=== PATIENT | male | born 1950 | race Caucasian/White ===

== ENCOUNTER 2018-03-07 18:16 | Emergency (ER) | payer OTHER ==
[~2018-03-07] VITALS: Ht 162.6 cm; Wt 66.0 kg
[~2018-03-07 18:16] MED LIST: ALFU1TAB10 PO; COUMPOW XX; DIGO0.12 PO; DILT180C56 OR; GEMF600T PO; LEVEMIR SQ; METO25 PO; PRAV40TA PO; SOTA80TA PO; SPIRPOW XX
[2018-03-07 18:17] VITALS: BP 126/70; PULSE 74; RESP 20; TEMP 98.4; O2SAT 97
[2018-03-07] MEDS ORDERED: ALFU10TA2 PO (18:37)
[2018-03-07] MEDS ORDERED: PRAD150C PO (18:37)
[2018-03-07] MEDS ORDERED: DILT120T PO (18:37)
[2018-03-07] MEDS ORDERED: SOTA80TA PO (18:37)
[2018-03-07] MEDS ORDERED: GEMF600T PO (18:37)
[2018-03-07] MEDS ORDERED: LEVEMIR SQ (18:37)
[2018-03-07] MEDS ORDERED: SPIR25TA PO (18:37)
[2018-03-07] MEDS ORDERED: PRAV40TA2 PO (18:37)
--- NOTE | 2018-03-07 18:56 | PD ---
HPI Chief Complaint: Injury Time Seen by Provider: 18:49 Travel History International Travel<30 days: No Contact w/Intl Traveler<30days: No Traveled to known affect area: No History of Present Illness HPI Patient presents with acute injury to his right great thumb. Using a table saw which removed the distal aspect of his thumb. Occurred 20 minutes prior to arrival. Tetanus up-to-date, reports tetanus 1 year ago. Pain is dull and achy 5 out of 10. Patient is a smoker. Past medical history for diabetes and atrial fibrillation. Anticoagulated with Pradaxa. Denies any aggravating or alleviating factors. Denies any new chest pain shortness of breath urinary or bowel symptoms. Denies any nausea vomiting diarrhea or fever. Last meal 1:30 PM. PFSH Past Medical History Hx Anticoagulant Therapy: Yes (Pradaxa ) Blood Disorders: No Anxiety: No Heart Rhythm Problems: Yes (A FIB WITH RVR) Cancer: No Cardiovascular Problems: Yes (AF) High Cholesterol: Yes Chemotherapy: No Congestive Heart Failure: Yes Diabetes: Yes (Type 2) Patient Takes Glucophage: No Diminished Hearing: No Endocrine: No GERD: Yes Genitourinary: Yes (PT HAS BNP) Immune Disorder: No Musculoskeletal: No Neurologic: No Psychiatric: No Respiratory: No Radiation Therapy: No Tetanus Vaccination: < 5 Years Influenza Vaccination: No ?: Not Past Surgical History Abdominal Surgery: No AICD: Yes ([employer] NOV 12, 2005 MODEL # 7278 SERIAL # [id number]) Cardiac Surgery: Yes Ear Surgery: No Endocrine Surgery: No Eye Surgery: No Genitourinary Surgery: No Gynecologic Surgery: No Joint Replacement: No Oral Surgery: No Pacemaker: No Thoracic Surgery: No Other Surgery: Yes Social History Alcohol Use: No Tobacco Use: Yes (1 pk per day) Substance Use: No Allergies-Medications (Allergen,Severity, Reaction): Coded Allergies: No Known Allergies (Verified Allergy, Unknown, 03/07/18) Reported Meds & Prescriptions Reported Meds & Active Scripts Active Bactrim DS (Sulfamethoxazole-Trimethoprim) 800-160 Mg Tab 1 Tab PO BID Doxycycline Hyclate 100 Mg Cap 100 Mg PO BID Reported Pravastatin 40 Mg Tab 40 Mg PO DAILY Levemir Inj (Insulin Detemir) 1,000 unit/ 10 ML Vial 58 Units SQ HS Do not mix with any other Insulin. Spironolactone 25 Mg Tab 12.5 Mg PO DAILY Sotalol (Sotalol HCl) 80 Mg Tab 80 Mg PO BID Gemfibrozil 600 Mg Tab 600 Mg PO BIDAC Take 30 minutes prior to breakfast and dinner. Diltiazem (Diltiazem HCl) 120 Mg Tab 180 Mg PO DAILY Pradaxa (Dabigatran) 150 Mg Cap 150 Mg PO BID Alfuzosin ER 24 HR 10 Mg Tab 10 Mg PO DAILY Review of Systems General / Constitutional: No: Fever Eyes: No: Visual changes HENT: No: Headaches Cardiovascular: No: Chest Pain or Discomfort Respiratory: No: Shortness of Breath Gastrointestinal: No: Abdominal Pain Genitourinary: No: Dysuria Musculoskeletal: No: Pain Skin: Positive Other (Amputation), No Rash Neurologic: No: Weakness Psychiatric: No: Depression Endocrine: No: Polydipsia Hematologic/Lymphatic: No: Easy Bruising Physical Exam Narrative GENERAL: Well-nourished, well-developed patient. SKIN: Focused skin assessment warm/dry. HEAD: Normocephalic. EYES: No scleral icterus. No injection or drainage. NECK: Supple, trachea midline. No JVD or lymphadenopathy. CARDIOVASCULAR: Regular rate and rhythm without murmurs, gallops, or rubs. RESPIRATORY: Breath sounds equal bilaterally. No accessory muscle use. GASTROINTESTINAL: Abdomen soft, normal bowel sounds, non-tender, nondistended. MUSCULOSKELETAL: No cyanosis, or edema. BACK: Nontender without obvious deformity. No CVA tenderness. Examination of the right thumb reveals amputation of the distal aspect approximately 0.5 cm, bleeding is controlled Data Data Last Documented VS Vital Signs Date Time Temp Pulse Resp B/P (MAP) Pulse Ox O2 Delivery O2 Flow Rate FiO2 03/07/18 18:30 18 95 Room Air 03/07/18 18:17 98.4 74 126/70 (88) Orders Orders Prothrombin Time / Inr (Pt) (03/07/18 18:49) Complete Blood Count With Diff (03/07/18 18:49) Comprehensive Metabolic Panel (03/07/18 18:49) Electrocardiogram (03/07/18 ) Chest, Single Ap (03/07/18 ) Finger ([id number]) (03/07/18 ) Sodium Chlor 0.9% 250 Ml Inj (Ns 250 Ml (03/07/18 19:00) Morphine Inj (Morphine Inj) (03/07/18 19:00) NPO (03/07/18 18:49) Bupivacaine Pf 0.5% Inj (Marcaine Pf 0.5 (03/07/18 20:00) Povidone Iodine 10% Oint (Betadine 10% O (03/07/18 21:15) Cefazolin Inj (Ancef Inj) (03/07/18 21:30) Labs Laboratory Tests Test 03/07/18 19:00 White Blood Count 7.3 TH/MM3 Red Blood Count 4.35 MIL/MM3 Hemoglobin 12.8 GM/DL Hematocrit 39.0 % Mean Corpuscular Volume 89.8 FL Mean Corpuscular Hemoglobin 29.3 PG Mean Corpuscular Hemoglobin Concent 32.7 % Red Cell Distribution Width 12.0 % Platelet Count 214 TH/MM3 Mean Platelet Volume 8.6 FL Neutrophils (%) (Auto) 62.6 % Lymphocytes (%) (Auto) 25.3 % Monocytes (%) (Auto) 8.0 % Eosinophils (%) (Auto) 3.4 % Basophils (%) (Auto) 0.7 % Neutrophils # (Auto) 4.6 TH/MM3 Lymphocytes # (Auto) 1.8 TH/MM3 Monocytes # (Auto) 0.6 TH/MM3 Eosinophils # (Auto) 0.2 TH/MM3 Basophils # (Auto) 0.1 TH/MM3 CBC Comment DIFF FINAL Differential Comment Prothrombin Time 12.0 SEC Prothromb Time International Ratio 1.2 RATIO Blood Urea Nitrogen 28 MG/DL Creatinine 1.30 MG/DL Random Glucose 128 MG/DL Total Protein 7.8 GM/DL Albumin 3.6 GM/DL Calcium Level 9.1 MG/DL Alkaline Phosphatase 104 U/L Aspartate Amino Transf (AST/SGOT) 9 U/L Alanine Aminotransferase (ALT/SGPT) 16 U/L Total Bilirubin 0.3 MG/DL Sodium Level 137 MEQ/L Potassium Level 4.4 MEQ/L Chloride Level 103 MEQ/L Carbon Dioxide Level 25.8 MEQ/L Anion Gap 8 MEQ/L Estimat Glomerular Filtration Rate 55 ML/MIN MDM Medical Decision Making Medical Screen Exam Complete: Yes Emergency Medical Condition: Yes Differential Diagnosis Amputation, open fracture, laceration Narrative Course Assessment plan discussed with patient and at bedside. EKG is paced with rate of 64. Last 72 hours Impressions Finger X-Ray 03/07/18 0000 Signed Impressions: CONCLUSION: Amputation of the terminal tuft distal phalanx right thumb. Chest X-Ray 03/07/18 0000 Signed Impressions: CONCLUSION: Pacer leads overlying right atrium and right ventricle. No active disease. Procedures Procedure Narrative See Dr. Beyer's note for surgical repair Physician Communication Physician Communication Spoke with Dr. Beyer who is in agreement surgical repair at bedside here in the ER Diagnosis Primary Impression: Amputation thumb Patient Instructions: General Instructions Additional Instructions: Motrin for pain, encouraged general wound care, follow-up with Dr. Beyer/hand surgery. Return to emerge from with any onset of new symptoms. Med/Other Pt SpecificInfo: Prescription(s) given Scripts Sulfamethoxazole-Trimethoprim (Bactrim DS) 800-160 Mg Tab 1 TAB PO BID for Infection, #20 TAB 0 Refills Prov: Mihai Hatfield MD 03/07/18 Doxycycline Hyclate (Doxycycline Hyclate) 100 Mg Cap 100 MG PO BID for Infection, #20 CAP 0 Refills Prov: Mihai Hatfield MD 03/07/18 Disposition: 01 DISCHARGE HOME Condition: Good Mihai Hatfield MD Mar 07, 2018 18:56
[2018-03-07] MEDS ORDERED: SODIUM CHLOR 0.9% 250 ML INJ 250 ML IV ONE (19:00)
[2018-03-07] MEDS ORDERED: MORPHINE SULFATE 2 MG/ML SYRINGE IV PUSH ONE (19:00)
[2018-03-07 19:23] LABS: AUTOMATED NEUTROPHIL # 4.6 TH/MM3 (1.8-7.7); BASOPHIL # 0.1 TH/MM3 (0-0.2); BASOPHIL % 0.7 % (0.0-2.0); EOSINOPHIL # 0.2 TH/MM3 (0-0.4); EOSINOPHIL % 3.4 % (0.0-4.0); HEMOGLOBIN 12.8 GM/DL (13.0-17.0); LYMPH % 25.3 % (9.0-44.0); LYMPHOCYTE # 1.8 TH/MM3 (1.0-4.8); MEAN CELL VOLUME 89.8 FL (80.0-100.0); MEAN CORPUSCULAR HEMOGLOBIN 29.3 PG (27.0-34.0); MEAN CORPUSCULAR HGB CONC 32.7 % (32.0-36.0); MEAN PLATELET VOLUME 8.6 FL (7.0-11.0); MONOCYTE # 0.6 TH/MM3 (0-0.9); NEUT % 62.6 % (16.0-70.0); PLATELET COUNT 214 TH/MM3 (150-450); RED BLOOD COUNT 4.35 MIL/MM3 (4.50-5.90); WHITE BLOOD COUNT 7.3 TH/MM3 (4.0-11.0)
[2018-03-07 19:32] LABS: CHLORIDE 103 MEQ/L (98-107); SODIUM (NA) 137 MEQ/L (136-145)
[2018-03-07 19:35] LABS: CALCIUM 9.1 MG/DL (8.5-10.1)
[2018-03-07 19:36] LABS: ALBUMIN 3.6 GM/DL (3.4-5.0); BICARBONATE 25.8 MEQ/L (21.0-32.0); BLOOD UREA NITROGEN 28 MG/DL (7-18); GLUCOSE,RANDOM 128 MG/DL (74-106)
[2018-03-07 19:39] LABS: ALT (GPT) 16 U/L (12-78); AST (GOT) 9 U/L (15-37); GLOMERULAR FILTRATION RATE 55 ML/MIN (>89)
[2018-03-07 19:40] LABS: TOTAL BILIRUBIN ADULT 0.3 MG/DL (0.2-1.0)
[2018-03-07 19:41] LABS: TOTAL PROTEIN 7.8 GM/DL (6.4-8.2)
[2018-03-07 19:42] LABS: ALKALINE PHOSPHATASE 104 U/L (45-117)
[2018-03-07 19:43] LABS: INTERNATIONAL NORMALIZED RATIO 1.2 RATIO
[2018-03-07] MEDS ORDERED: BUPIVACAINE HCL PF 0.5% 30 ML VIAL INFIL ONE (20:00)
--- NOTE | 2018-03-07 20:13 | RADRPT ---
EXAM DATE: 03/07/2018 7:23 PM EDT AGE/SEX: 68 years / Male INDICATIONS: Chest pain after fall. CLINICAL DATA: This is the patient's initial encounter. Patient reports that signs and symptoms have been present for 1 day and indicates a pain score of 1/10. MEDICAL/SURGICAL HISTORY: None. Pacemaker. COMPARISON: No prior exams available for comparison. FINDINGS: A single AP view of the chest demonstrates the lungs to be symmetrically aerated without evidence of mass, infiltrate or effusion. Pacer leads overlie right atrium and right ventricle. The cardiomediast inal contours are unremarkable. Osseous structures are intact. CONCLUSION: Pacer leads overlying right atrium and right ventricle. No active disease. Electronically signed by: Juan Manuel Shelton MD 03/07/2018 8:11 PM EDT
--- NOTE | 2018-03-07 20:14 | RADRPT ---
EXAM DATE: 03/07/2018 7:24 PM EDT AGE/SEX: 68 years / Male INDICATIONS: Right hand, 1st digit laceration with saw blade. CLINICAL DATA: This is the patient's initial encounter. Patient reports that signs and symptoms have been present for 1 day and indicates a pain score of 9/10. MEDICAL/SURGICAL HISTORY: None. None. COMPARISON: No prior exams available for comparison. FINDINGS: There is amputation of the terminal tuft of the distal phalanx of the right thumb with overlying lace ration. No radiopaque foreign bodies. CONCLUSION: Amputation of the terminal tuft distal phalanx right thumb. Electronically signed by: Juan Manuel Shelton MD 03/07/2018 8:13 PM EDT
[2018-03-07] MEDS ORDERED: BACT800T5 PO (21:04)
[2018-03-07] MEDS ORDERED: DOXY100C PO (21:04)
[2018-03-07] MEDS ORDERED: POVIDONE IODINE 10% OINT 30 GM TUBE TOPICAL ONE (21:15)
--- NOTE | 2018-03-08 08:48 | MB ---
cc: Dori Beyer MD DATE: 03/07/2018 REQUESTING PHYSICIAN: The patient is being seen at the request of Dr. Mihai Hatfield. REASON FOR CONSULTATION: Amputation, tip of the right thumb. HISTORY OF PRESENT ILLNESS: The patient is a 68-year-old male with a history of diabetes and 50+ pack year history of smoking, who was working with a new table blade on a table saw and sustained an injury to his right thumb. The injury amputated the tip of his thumb and consultation is requested regarding evaluation and treatment of the open wound. PAST MEDICAL HISTORY: The patient is on anticoagulant therapy. He has a history of atrial fibrillation, has a history of hypercholesterolemia, congestive heart failure. He has benign prostatic hyperplasia. PAST SURGICAL HISTORY: Includes an AICD implanted 10/2005. SOCIAL HISTORY: No alcohol use. Significant tobacco use. ALLERGIES: NO KNOWN FOOD OR DRUG ALLERGIES. MEDICATIONS: Listed on the chart. REVIEW OF SYSTEMS: Negative except as related to the injury. PHYSICAL EXAMINATION: GENERAL: The patient is lying comfortably on the stretcher. VITAL SIGNS: His temperature is 98.4, pulse of 74, respirations 20, blood pressure 126/70, pulse oximetry is 97 on room air. HEENT: Extraocular muscles are intact. Pupils are equal, round and reactive to light. The patient is hard of hearing. LUNGS: Clear. HEART: Has a regular rate and rhythm. EXTREMITIES: Examination of his right hand reveals amputation of the distal phalanx from the mid nail distally. The soft tissue, though is preserved. The flap does appear to be adequately perfused. LABORATORY DATA: The x-ray was reviewed and is consistent with the above evaluation. IMPRESSION: Partial amputation, tip of the right thumb. PLAN: Repair. The patient understands and accepts the risks and complications of the surgery. Dori Beyer MD [facility] , 09:34 PM , 08:46 AM
--- NOTE | 2018-03-08 08:55 | MP ---
cc: Dori Beyer MD DATE OF OPERATION: 03/07/2018 DATE OF OPERATION: 03/07/2018 PREOPERATIVE DIAGNOSIS: Amputation of the tip of his right thumb. POSTOPERATIVE DIAGNOSIS: Amputation of the tip of his right thumb. PROCEDURE PERFORMED: 1. Excisional debridement of tip of right thumb. 2. Closure with a local flap. ANESTHESIA: Local. SURGEON: Dori Beyer MD INDICATION FOR OPERATION: A 68-year-old male with a table saw injury to his right thumb. FINDINGS: At the completion of the procedure, the bone was completely covered with soft tissue. OPERATIVE TIME: Approximately 30 minutes. DESCRIPTION OF PROCEDURE: The patient was seen in the emergency room where the operation was performed. The ER physician had numbed up his right thumb. It was then prepped with Betadine and draped in the usual sterile fashion. Undermining was carried out between the palmar surface of the bone and the surrounding tissue. The flap was then advanced and sewn into the nail plate using 4-0 nylon suture material. It was then sewn into the paronychial tissues of the thumb using the same suture material. Once the wound was closed tourniquet was released after 30 minutes of tourniquet time. The area was cleansed of Betadine and blood, and povidone iodine ointment was applied along the dry dressing using Daniel and Danny. The patient was then given back to the care of the ER staff for disposition. The patient and his are advised that he should keep his hand elevated, keep the area clean and dry and return in 5 days for followup. In addition to keeping his hand elevated at the level of his shoulder and keeping the area dry, they are to soak the thumb in a dilute solution of Betadine and water ,enough Betadine to make it look like strong tea, for about 15 minutes once a day and then apply povidone iodine ointment, some of which was given to the patient. If they have any questions, they are to call. In addition, he is advised that his smoking during this period will possibly result in loss of all or part of the flap. They understand that and accept that risk. Dori Beyer MD [facility] , 09:37 PM , 08:52 AM
--- NOTE | 2018-03-08 14:11 | EKG ---
Date Performed: 03/07/2018 Time Performed: 18:59:55 PTAGE: 68 years EK% ATRIAL PACING ABNORMAL RHYTHM ECG Since PREVIOUS TRACING , no significant change noted PREVIOUS TRACIN12/15/2010 19.13 DOCTOR: Mayco Navarrete Interpretating Date/Time 03/08/2018 14:10:04
== END 2018-03-07 22:05 | disposition home or self-care (01) ==
LOC: PHED 18:16
DX: S68.021A Partial traumatic metacarpophalangeal amputation of right thumb, initial encounter (principal); I48.91 Unspecified atrial fibrillation; E11.9 Type 2 diabetes mellitus without complications; I50.9 Heart failure, unspecified; N40.0 Benign prostatic hyperplasia without lower urinary tract symptoms; R94.31 Abnormal electrocardiogram [ECG] [EKG]; Z88.2 Allergy status to sulfonamides; Z72.0 Tobacco use; Z79.01 Long term (current) use of anticoagulants
CPT/HCPCS: 13131; 71045; 73140; 80053; 85025; 85610; 93005; 96361; 96365; 96375; 99285; J0690; J2270; J7050